=== PATIENT | male | born 1995 | race African-American/Black ===

== ENCOUNTER 2019-03-27 10:10 | Emergency (ER) | payer OTHER ==
[~2019-03-27] VITALS: Ht 167.6 cm; Wt 122.7 kg
[2019-03-27 10:18] VITALS: BP 130/72; TEMP 100.7
[2019-03-27 10:57] LABS: STREP SCREEN POSITIVE
[2019-03-27 11:45] VITALS: PULSE 97
== END 2019-03-27 11:45 | disposition home or self-care (01) ==
LOC: COL.ER 10:10
PROVIDERS: Physician Assistant
DX: J02.0 Streptococcal pharyngitis (principal)
CPT/HCPCS: J0561

== ENCOUNTER 2020-03-15 10:42 | Emergency (ER) | payer OTHER ==
[~2020-03-15] VITALS: Ht 175.3 cm; Wt 129.5 kg
[2020-03-15 12:18] VITALS: BP 128/76; PULSE 80; TEMP 99.3
--- NOTE | 2020-03-17 10:05 | NUR ---
The patient has [employer]. [employer] faxed [facility].
== END 2020-03-15 12:20 | disposition home or self-care (01) ==
LOC: COL.ER 10:42
DX: U07.1 COVID-19 (principal)

== ENCOUNTER 2020-11-06 16:08 | Emergency (ER) | payer OTHER ==
[~2020-11-06] VITALS: Ht 175.3 cm; Wt 125.0 kg
[2020-11-06 17:19] VITALS: TEMP 98.7
[2020-11-06] MEDS ORDERED: FLEXERIL 1010 MG/TAB PO (17:33)
[2020-11-06 17:45] VITALS: BP 115/68; PULSE 60
== END 2020-11-06 17:45 | disposition home or self-care (01) ==
LOC: COL.ER 16:08
DX: M25.511 Pain in right shoulder (principal)

== ENCOUNTER 2021-06-26 16:14 | Day surgery (SDC) | payer OTHER ==
[~2021-06-26] VITALS: Ht 175.3 cm; Wt 130.5 kg
[~2021-06-26 16:14] MED LIST: FLEXERIL 1010 MG/TAB PO
[2021-06-26 17:05] LABS: BASO # 0.1 K/mm3 (0.0-0.2); BASO % 0.7 % (0.0-2.0); EOS # 0.1 K/mm3 (0.0-0.7); EOS % 1.7 % (0.0-4.0); GRAN # 5.5 K/mm3 (1.4-6.5); GRAN % 67.8 % (42.2-75.2); HEMATOCRIT 41.4 % (42.0-52.0); HEMOGLOBIN 14.1 g/dl (13.5-18.0); LYMPH # 1.6 K/mm3 (1.2-3.4); LYMPH % 20.2 % (20.0-51.0); MEAN CELL VOLUME 89 fl (80.0-100.0); MEAN CORPUSCULAR HEMOGLOBIN 30 pg (27-31); MEAN CORPUSCULAR HGB CONC 34 g/dl (33.0-37.0); MEAN PLATELET VOLUME 10.7 fl (7.4-10.4); MONO # 0.8 K/mm3 (0.1-0.6); MONO % 9.4 % (1.7-9.3); PLATELET COUNT 255 K/mm3 (130-400); RED BLOOD COUNT 4.64 M/mm3 (4.20-5.60); REDCELL DISTRIBUTION WIDTH-CV 11.9 % (11.5-14.5)
[2021-06-26 17:24] LABS: ALBUMIN 4.3 gm/dL (3.5-5.0); BILIRUBIN,TOTAL 1.2 mg/dL (0.2-1.2); C-REACTIVE PROTEIN 2.29 mg/dL (0.00-0.50); CALCIUM 9.4 mg/dL (8.4-10.2); CREATININE, serum 1.1 mg/dL (0.72-1.25); TOTAL PROTEIN 8.3 gm/dL (6.2-8.1)
[2021-06-26 17:25] LABS: COLLECTION METHOD CLEAN CATCH
[2021-06-26 17:31] LABS: MUCOUS Present (NOT PRESENT); PH 5 (5-8); SQUAMOUS EPITHELIAL None Seen /hpf (0-10); URINE APPEARANCE Hazy (CLEAR/HAZY); URINE BACTERIA None Seen /hpf (NONE SEEN); URINE BILIRUBIN Negative (NEGATIVE); URINE BLOOD Negative (NEGATIVE); URINE COLOR Yellow (YELLOW); URINE GLUCOSE Negative (NEGATIVE); URINE KETONE Trace (NEGATIVE); URINE LEUKOCYTE ESTERASE Negative (NEGATIVE); URINE NITRATE Negative (NEGATIVE); URINE PROTEIN(semi-quant) Negative (NEGATIVE); URINE RBC 0-2 /hpf (0-2)
[2021-06-26 22:00] VITALS: BP 130/71; PULSE 92; TEMP 98.8
[2021-06-26 22:15] VITALS: BP 119/71; PULSE 88; TEMP 98.6
[2021-06-26 22:30] VITALS: BP 129/77; PULSE 85; TEMP 98.8
[2021-06-26 22:45] VITALS: BP 129/72; PULSE 94; TEMP 98.7
[2021-06-26 23:00] VITALS: BP 139/74; PULSE 83; TEMP 98.8
--- NOTE | 2021-06-26 23:05 | NUR ---
PT RATES HIS PAIN AT A 10. PT GIVEN NORCO FOR PAIN. WILL CONTINUE TO MONITOR. CALL LIGHT WITHIN REACH.
[2021-06-26 23:30] VITALS: BP 132/78; PULSE 85; TEMP 98.8
[2021-06-27] VITALS: BP 127/74; PULSE 92; TEMP 98.5
[2021-06-27 01:00] VITALS: BP 130/64; PULSE 92; TEMP 98.6
[2021-06-27 02:00] VITALS: BP 130/64; PULSE 101; TEMP 98.7
[2021-06-27 03:55] VITALS: BP 124/72; PULSE 86; TEMP 98.5
--- NOTE | 2021-06-27 05:00 | NUR ---
PT ARRIVED TO THE MEDICAL FLOOR FROM SURGERY AROUND 2200HRS TO RM 316. PT A&O X 4; VSS; O2 2L. O2 REDUCED TO 0.5L LATER DURING SHIFT. PT COMPLAINED OF ABD PAIN. PT GIVEN NORCO FOR PAIN. NORCO HELPED TO REDUCE PAIN PER PT. PT DENIED CHEST PAIN, PALPITATIONS, N,V,D, SOB OR DIZZINESS. ADMISSION ASSESSMENT AND MED REC COMPLETE. PT ORIENTED TO ROOM AND HOSPITAL POLICY. POC DISCUSSED WITH PT. PT VERBALIZED UNDERSTANDING. ALL QUESTIONS AND CONCERNS ADRESSED. PT EXPRESSED NO OTHER NEEDS AT THIS TIME. CALL LIGHT WITHIN REACH.
[2021-06-27 07:35] VITALS: BP 120/66; PULSE 80; TEMP 98.1
--- NOTE | 2021-06-27 08:00 | NUR ---
PT HAS HYPOACTIVE BOWELS, DR. CASTRO NOTIFIED, HE IS AT BEDSIDE AND STATES IF HE DOES WELL WITH LUNCH, PT CAN DISCHARGE.
[2021-06-27] MEDS ORDERED: NORCO 325 MG-51 TAB PO (10:08)
[2021-06-27 11:37] VITALS: BP 133/70; PULSE 95; TEMP 97.9
--- NOTE | 2021-06-27 12:50 | NUR ---
[employer] visited with patient briefly. Nothing else needed.
--- NOTE | 2021-06-27 13:00 | NUR ---
THE PATIENT IS DISCHARGING AT THIS TIME. DENIES PAIN >4/10. PT WAS GIVEN DISCHARGE INSTRUCTIONS, VERBALIZED UNDERSTANDING. IV REMOVED, AND PT PREPARED TO LEAVE. NO OTHER CONCERNS.
== END 2021-06-27 13:00 | disposition home or self-care (01) ==
LOC: COL.ER 16:14 → SDCO 18:25 → MEDICAL 18:25 → SDCO 06-27 13:00
PROVIDERS: Emergency Medicine
DX: K35.80 Unspecified acute appendicitis (principal); E66.01 Morbid (severe) obesity due to excess calories
CPT/HCPCS: OP; J0330; J0690; J1100; J1885; J2250; J2270; J2405; J2543; J2704; J3010; J7030; J7120; Q9967